=== PATIENT | female | born 1930 | race Caucasian/White ===

== ENCOUNTER 2016-07-23 09:58 | Observation (INO) | payer MEDICARE, OTHER, MEDICAID, SELFPAY ==
[~2016-07-23] VITALS: Ht 165.1 cm; Wt 69.2 kg
--- NOTE | ~2016-07-23 | CON ---
[facility] 86 Y [address] ROOM: [place] [address] LOCATION: GPCU ADMIT DATE: 07/23/2016 Consultation DISCHARGE DATE: FAMILY PHYSICIAN: BRIAN SHEFFIELD MD ATTENDING PHYSICIAN: SHERYL GREGORY DATE OF CONSULTATION: 07/23/2016 REFERRING PHYSICIAN: Rodney BARNETT CHIEF COMPLAINT: Medical management in the setting of right arm hematoma evacuation. HISTORY OF PRESENTING ILLNESS: This 86-year-old white female with previous history of end-stage renal disease, on hemodialysis; peripheral arterial disease; and coronary artery disease, was admitted to [facility] today by Dr. Gregory for planned evacuation of a right arm hematoma. She underwent the procedure without any complications. Venous blood was found without any obvious arterial source for bleeding. Postoperatively, she was transferred to the floor and has done well. Presently, she complains of a little bit of soreness in the right upper arm. She denies headaches and denies dizziness or nausea. No chest pain, shortness of breath, or abdominal pain. She does relate that she is worried that she "won't sleep" since she took a long nap this afternoon. PAST MEDICAL HISTORY: ALLERGIES: PENICILLIN, NIACIN, CODEINE, AND RANEXA. ILLNESSES: 1. End-stage renal disease, on hemodialysis 3 days a week. 2. Coronary artery disease, status post coronary artery bypass grafting and PCI with stenting. 3. Peripheral arterial disease with stenting of abdominal aortic aneurysm. 4. Essential hypertension. 5. Diabetes mellitus type 2. 6. Hyperlipidemia. 7. 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 8. Chronic oxygen dependence. 9. Hypothyroidism. 10. Anemia of chronic kidney disease. CURRENT MEDICATIONS: PATIENT'S NAME: JUAN PABLO [facility] AGE: 86 Y [address] ROOM: [place] [address] LOCATION: GPCU ADMIT DATE: 07/23/2016 Consultation DISCHARGE DATE: FAMILY PHYSICIAN: BRIAN SHEFFIELD MD ATTENDING PHYSICIAN: SHERYL GREGORY 1. Albuterol per neb q.4 hours p.r.n. 2. Amlodipine 5 mg p.o. daily. 3. Aspirin 81 mg p.o. daily. 4. Dulcolax 10 mg [place] daily p.r.n. 5. PhosLo 667 p.o. t.i.d. 6. Clonidine 0.1 mg p.o. b.i.d. 7. Plavix 75 mg p.o. daily. 8. Benadryl 25 mg p.o. q.h.s. 9. Colace 100 mg p.o. b.i.d. 10. Folate 1 mg p.o. daily. 11. Blanchard 1-2 tabs p.o. q.4 hours p.r.n. 12. Isosorbide mononitrate 30 mg p.o. 4 days a week and 60 mg p.o. 3 days a week. 13. Ensure liquid 4 ounces twice a day. 14. Levothyroxine 150 mcg p.o. q.h.s. 15. Lorazepam 0.25 mg p.o. 4 days a week and 0.5 mg p.o. q.8 hours p.r.n. 16. Milk of magnesia 30 mL p.o. daily p.r.n. 17. Reglan 5 mg p.o. b.i.d. 18. Metoprolol 100 mg p.o. 6 days a week. 19. Nitroglycerin p.r.n. 20. Omeprazole 40 mg p.o. daily. 21. Zofran 4 mg p.o. q.6 hours p.r.n. 22. Oxygen 3 L per nasal cannula continuously. 23. vitamin daily. 24. Seroquel 25 mg p.o. daily. 25. Rosuvastatin 40 mg p.o. daily. 26. Simethicone 80 mg p.o. q.4 hours p.r.n. FAMILY HISTORY: Significant for diabetes mellitus type 2 and coronary artery disease in her mother. SOCIAL HISTORY: She is and lives here in [place] at [facility]. She has good social support. She has a 40 [id number] history of smoking tobacco, has been quit for 3 years. There is no significant history of alcohol use. REVIEW OF SYSTEMS: As per HPI. All other organ systems are reviewed and are negative. OBJECTIVE: VITAL SIGNS: Temperature 98.3, pulse 86, respirations 14, blood pressure 148/67, and O2 saturation 95% on 3 L per nasal cannula. GENERAL: She is frail, not ill-appearing, lying in the bed, in no acute distress. PATIENT'S NAME: WARD ALMEIDA I [facility] AGE: 86 Y [address] ROOM: [id number] [place], [place] [address] LOCATION: GPCU ADMIT DATE: 07/23/2016 Consultation DISCHARGE DATE: FAMILY PHYSICIAN: BRIAN SHEFFIELD MD ATTENDING PHYSICIAN: SHERYL GREGORY SKIN: Supple, sallow, warm, and dry. No obvious rashes. The wound dressing overlying the right arm is clean and intact. There is a little bit of serosanguineous oozing from her dialysis catheter at the right chest, but no marcela bleeding. HEENT: Otherwise, normocephalic. Sclerae nonicteric. Pupils equal, round, and reactive to light and accommodation. Extraocular movements appear intact. Nasal turbinates normal. Oropharynx clear. Mucous membranes are pink and moist. NECK: Supple. No masses or adenopathy. No thyromegaly. No JVD. CHEST: Wall is symmetrical. HEART: Regular with occasional extrasystoles. There is a grade 2 to 3 out of 6 systolic ejection murmur. LUNGS: Diminished at the bases with long expiratory phase. No marcela wheezes. No areas of consolidation. ABDOMEN: Soft, nontender. Bowel sounds present. No mass. No hepatosplenomegaly. : Not done. RECTAL: Not done. EXTREMITIES: Display trace pitting edema. No cyanosis. NEUROLOGICAL: Mentation is little slowed, but there are no focal deficits. LABORATORY AND X-RAY DATA: CBC showed white blood cell count 11.1, hemoglobin is 9.7, hematocrit 31.3, and platelets 156. Chemistries revealed BUN and creatinine 35 and 5.0 respectively, sodium and potassium 139 and 4.3, chloride and CO2 are 104 and 26, calcium was 7.6, and glucose was 177. PT PTT 11.2 and 26 respectively with an INR of 1.1. Accu-Chek 113. ASSESSMENT/PLAN: 1. Diabetes mellitus type 2, historically well controlled. We will continue to manage with Accu-Cheks and sliding scale insulin while she is inpatient. We will make careful adjustments depending on her insulin needs. 2. Coronary artery disease, status post coronary artery bypass grafting. Clinically, stable and otherwise is asymptomatic. Continue with careful medical management including aspirin, Plavix, and beta-toshia therapy. Also, continue statin therapy. 3. End-stage renal disease, on hemodialysis. Plan to continue with hemodialysis per Nephrology. 4. Anemia of chronic kidney disease. There may be a component of acute blood loss. We will follow hemoglobin semi-serially. Plan to repeat CBC again in the morning. 5. Right arm hematoma, status post evacuation. She is on aspirin and Plavix. Plan to continue with those medications and monitor for blood loss as above. PATIENT'S NAME: WARD ALMEIDA I [facility] AGE: 86 Y [address] ROOM: [place] [address] [facility]: 07/[facility]2016 Consultation DISCHARGE DATE: FAMILY PHYSICIAN: BRIAN SHEFFIELD MD ATTENDING PHYSICIAN: SHERYL GREGORY 6. Essential hypertension, appears to be adequately controlled. We will monitor the trend and make adjustments if necessary. 7. Deep venous thrombosis prophylaxis. Utilize pneumatic compression devices and mobilize as she is physically able. MD FABIÁN RAMON/modl /[id number] d: 07/24/16223 t: 07/24/16 2154, CONSULTATION REPORT
--- NOTE | ~2016-07-23 | OR ---
PATIENT'S NAME: WARD ALMEIDA I [facility] AGE: 86 Y [address] ROOM: [facility] [place], [place] [address] LOCATION: GPCU ADMIT DATE: 07/23/2016 OR/Procedure Report DISCHARGE DATE: FAMILY PHYSICIAN: BIRAN SHEFFIELD MD ATTENDING PHYSICIAN: DAVID GREGORY SURGEON: David Gregory MD LEGISLATIVE ASSISTANT: DATE OF PROCEDURE: 07/23/2016 PREOPERATIVE DIAGNOSIS: End-stage renal disease. POSTOPERATIVE DIAGNOSIS: End-stage renal disease. PROCEDURE: Right arm brachiobasilic AV fistula superficialization. SEMICONDUCTOR PROCESSING GROUP LEADER: CAROLANN Ayala. ANESTHESIA: General. ESTIMATED BLOOD LOSS: 5 mL. Then, the patient was brought to the operating room for evacuation of hematoma from the recovery room immediately. COMPLICATION: Hematoma. No distinct source identified at re-operation. DESCRIPTION OF PROCEDURE: The patient was brought to the operating room, placed supine on the operative table. Prepped and draped in a sterile manner after being placed under general anesthesia. The patient received preoperative antibiotics. A time-out was performed. We made an incision along the path of the basilic vein fistula which was already matured, dissected in a 360-degree fashion, ligated and clipped all branches. We brought it to the surface. Using interrupted Vicryl sutures in the subcuticular tissue and then closed the skin with interrupted 4-0 nylon. The arm was dressed and taken to the recovery room. After about 10 minutes being in the recovery room, the patient had a sudden shot of pain in her arm and her arm began to swell and bleed. We took her back to the operating room immediately. She was once again prepped and draped in a sterile manner. We reopened the wound. There was a large evacuation of the hematoma with a total blood loss of about a liter. We copiously irrigated the wound. With even surgical lavage and pulse irrigation, we could not find a distinct arterial bleed. The fistula was intact. There was a strong thrill and bruit in the fistula. We suture ligated some small venous ends, but this could not really explain where this arterial blood was from. This patient is end-stage renal and hyper-uremic as well as being on aspirin and Plavix, this could have just been from generalized ooze. After irrigating the wound further, we packed it with Surgicel, reapproximated the deep layers with Vicryl and then closed the PATIENT'S NAME: WARD ALMEIDA I [facility] AGE: 86 Y [address] ROOM: [place] [address] [facility] AD[facility] DATE: 07/23/2016 OR/Procedure Report DISCHARGE DATE: FAMILY PHYSICIAN: BRIAN SHEFFIELD MD ATTENDING PHYSICIAN: DAVID GREGORY skin once again with 4-0 Monocryl. The patient will be admitted to the hospital for observation overnight. MD ALYSON SHERIDAN/mercy /[id number] d: 07/24/16 0036 t: 07/27/16 0945, OPERATIVE SUMMARY
--- NOTE | ~2016-07-23 | CON ---
PATIENT'S NAME: WARD ALMEIDA I [facility] AGE: 86 Y [address] ROOM: [place] [address] LOCATION: GPCU ADMIT DATE: 07/24/2016 Consultation DISCHARGE DATE: FAMILY PHYSICIAN: BRIAN SHEFFIELD MD ATTENDING PHYSICIAN: SHERYL GREGORY DATE OF CONSULTATION: 07/24/2016 REFERRING PHYSICIAN: Rodney BARNETT This is [facility] Nephrology consultation. REASON FOR CONSULTATION: End-stage renal disease, need for hemodialysis. HISTORY OF PRESENT ILLNESS: This is an 86-year-old female patient, who is well known to Nephrology, who presents to Dr. Gregory for a right arm brachiobasilic AV fistula superficialization with evacuation of hematoma following. The patient does currently have hemodialysis on Friday, Friday, Friday at [facility] in [place]. She does tolerate this quite well. The patient does attend her hemodialysis appointments as scheduled. She is compliant with her medications and is currently living in [facility]. The patient does have a longstanding history of significant coronary artery disease and diastolic cardiac dysfunction with congestive heart failure. The patient has been started on hemodialysis for history of cardiorenal syndrome with fluid overload. The patient has had multiple percutaneous coronary interventions with stent placement at least 5 times. She, however, has not undergone coronary artery bypass grafting surgery. The patient usually follows with Dr. Kim at [facility]. The patient presented for a right arm brachiobasilic AV fistula, stage I procedure with Dr. Gregory. The patient is due for hemodialysis today and does continue to have some oozing from the site postprocedure. Dr. Gregory would like to keep the patient in, and therefore, Dr. Kim has been consulted to manage the patient's inpatient dialysis. PAST MEDICAL HISTORY: As listed above includin. End-stage renal disease, on hemodialysis therapy. 2. Coronary artery disease. 3. Hypertension. 4. Mixed hyperlipidemia. PATIENT'S NAME: WARD ALMEIDA I [facility] AGE: 86 Y [address] ROOM: [place] [address] LOCATION: GPCU ADMIT DATE: 07/24/2016 Consultation DISCHARGE DATE: FAMILY PHYSICIAN: BRIAN SHEFFIELD MD ATTENDING PHYSICIAN: SHERYL GREGORY 5. Type 2 diabetes mellitus. 6. Colonic diverticular disease, post sigmoid colectomy in 2004. 7. Chronic obstructive pulmonary disease, oxygen dependent. 8. Abdominal aortic aneurysm, post stent graft repair on 07/13/2012. 9. Carotid occlusive disease, post left carotid endarterectomy in 2012. 10. Gouty arthritis. 11. Primary hypothyroidism. 12. Anemia of chronic disease. PAST SURGICAL HISTORY: As listed above includin. Appendectomy. 2. PTCA with multiple stenting and PCI. 3. Left carotid endarterectomy in 2012. 4. Endovascular abdominal aortic stent graft repair in June of 2012. 5. Left iliac pseudoaneurysm repair in 2013. 6. Cholecystectomy in 1969. 7. Hysterectomy in the . ALLERGIES: PENICILLIN, WHICH CAUSES ANGIOEDEMA AND HIVES; AND NIACIN CAUSING HIVES; AND CODEINE CAUSING HIVES AND HER FACE SWELLING. FAMILY HISTORY: Reviewed and is noncontributory. There is no history of d-stage renal disease or dialysis. There is a strong family history of type 2 diabetes mellitus and coronary artery disease. There is also a strong family history of peripheral vascular disease. SOCIAL HISTORY: The patient is a former smoker of approximately 1 to 2 packs per day for over 40 years. She did quit in July 2013. She denies any illicit drug use or alcohol use currently. The patient is also and does live at [facility] currently. She does have strong family support. CURRENT HOME MEDICATIONS: 1. Aspirin 81 mg daily. 2. Ativan 0.25 mg on Friday, Friday, , Friday. 3. Catapres 0.1 mg p.o. b.i.d. 4. Colace 100 mg p.o. b.i.d. 5. Crestor 40 mg daily at bedtime. 6. Clindamycin 600 mg IV q.8 hours. 7. Folic acid 1 mg p.o. daily. 8. Imdur 30 mg p.o. Friday, Friday, , Friday, and 60 mg Friday, Friday, and Friday. PATIENT'S NAME: WARD ALMEIDA I [facility] AGE: 86 Y [address] ROOM: [address] [place] [address] LOCATION: GPCU ADMIT DATE: 07/24/2016 Consultation DISCHARGE DATE: FAMILY PHYSICIAN: BRIAN SHEFFIELD MD ATTENDING PHYSICIAN: SHERYL GREGORY 9. Levothyroxine 150 mcg daily at bedtime. 10. Lopressor 100 mg Friday, Friday, Friday, , Friday, Friday twice a day. 11. Norvasc 5 mg daily. 12. NovoLog sliding scale. 13. PhosLo 667 mg p.o. t.i.d. 14. Plavix 75 mg daily. 15. one tablet daily. 16. Protonix 40 mg daily. 17. Reglan 5 mg twice a day. 18. Seroquel 25 mg p.o. daily. REVIEW OF SYSTEMS: GENERAL: Denies any fever, chills, or night sweats. EYES: No double vision or blurred vision. Her visual acuity is less than ideal. EARS: Decreased auditory acuity noted. NOSE: No epistaxis or rhinorrhea. THROAT: No sore throat, hoarseness, or cough. RESPIRATORY: Denies wheezing or hemoptysis. CARDIOVASCULAR: Denies any chest pain currently or palpitations. Significant history of coronary artery disease. See HPI. GASTROINTESTINAL: Denies any nausea, vomiting, or diarrhea. Does report a lack of appetite currently. GENITOURINARY: Denies any frequency, urgency, or hesitancy. She does continue to make a small amount of urine despite hemodialysis. MUSCULOSKELETAL: She does have some generalized arthralgias. No new arthralgias or myalgias. She does report some pain in the right upper extremity secondary to procedure. PSYCHIATRIC: She does have some anxiety. Denies a history of depression. LABORATORY DATA: WBCs 9.3, hemoglobin 8.5, hematocrit 26.8, platelets 152. Glucose 175, BUN 42, creatinine 5.5, sodium 140, potassium 4.7, chloride 106, CO2 of 23, calcium 7.2, albumin 2.7. INR 1.1. PHYSICAL EXAMINATION: VITAL SIGNS: Blood pressure is 126/58, pulse is 66, respirations 13, temp is 97.6, and saturations are 92% on 2 L nasal cannula. GENERAL: On exam, this is an alert and oriented white elderly female, who appears her approximated stated age, is in no acute distress. HEENT. Her head is normocephalic and atraumatic. Eyes: Pupils are equal, round, react to light and accommodation. EOMs are intact. Corrective lenses are worn. Nose is midline. Mouth, no gingival bleeding. Dentition is in poor repair. Mucous membranes are pink and moist. PATIENT'S NAME: WARD ALMEIDA I [facility] AGE: 86 Y [address] ROOM: [place] [address] LOCATION: GPCU ADMIT DATE: 07/24/2016 Consultation DISCHARGE DATE: FAMILY PHYSICIAN: BRIAN SHEFFIELD MD ATTENDING PHYSICIAN: SHERYL GREGORY NECK: Without lymphadenopathy or JVD. No bruits noted. CARDIOVASCULAR: Regular rate and rhythm with a grade 2 to 3 over 6 systolic ejection murmur heard best at the second intercostal space, radiation to the carotids. LUNGS: Lung sounds are clear to auscultation anteriorly and posteriorly. Breaths are nonlabored. The patient is on 2 L nasal cannula. ABDOMEN: Soft, nontender, and nondistended. Bowel sounds positive. EXTREMITIES: Show trace lower extremity edema bilaterally. GENITOURINARY: Deferred. RECTAL: Deferred. NEUROLOGIC: Cranial nerves 2 through 12 are grossly intact. The patient is alert and oriented x3 at the time of exam. ASSESSMENT AND PLAN: 1. End-stage renal disease, requiring hemodialysis therapy. We will obtain the patient's outpatient clinical record and provide hemodialysis accordingly. The patient is due for hemodialysis today. We will follow with her current plan of care. 2. Right arm hematoma, status post evacuation. The patient is on aspirin and Plavix as an outpatient. The patient is continuing to ooze from the site. Dr. Gregory is following. 3. Anemia of chronic kidney disease. The patient's hemoglobin is currently stable. We will continue to follow closely, and the patient will receive Mircera as an outpatient for her history of chronic disease. 4. Coronary artery disease. This is currently stable. The patient is not experiencing any exertional chest discomfort. We will follow closely due to her significant history and involve Cardiology as warranted. This patient has been seen and assessed by Dr. Kim. Her care is being conducted in consultation with Dr. Kim as well as me. We will plan further recommendations as they are forthcoming. SCOTT MORROW DNP, MD ADAN STONER/mercy /[id number] d: 07/24/162 t: 08/07/16 1557, CONSULTATION REPORT
[~2016-07-23 09:58] MED LIST: ALBUTEROL0.63 MG/3 INH; ASPIR 8181 MG PO; ATIVAN 0.5MG0.5 MG PO; BENADRYL25 MG PO; BRILINTA90 MG PO; CATAPRES0.1 MG PO; CEFTIN500 MG PO; COLACE100 MG PO; COZAAR50 MG PO; CRESTOR20 MG PO; CRESTOR40 MG PO; DULCOLAX10 MG R; ENSURE ORIGINA237 M1 PO; FOLIC ACID1 MG PO; GENTAMICIN15 GM TOP; IMDUR30 MG PO; IMDUR60 MG PO; LEVOTHROID (S137 MCG PO; LEVOTHROID (S150 MCG PO; LOPRESSOR100 MG PO; METOCLOPRAMIDE H5 MG PO; MILK OF MA400 MG/5 M PO; MYLICON OR GAS-80 MG PO; NITROSTAT 0.40.4 MG SL; NORCO 5-325 MG1 TAB PO; NORCO 5-325 TA1 EACH PO; NORVASC5 MG PO; OXYGEN M-15 INH; PAIN & FEVER325 MG PO; PHOSLO667 MG PO; PLAVIX75 MG PO; PREFERA OB TAB1 EACH PO; PRILOSEC40 MG PO; SEROQUEL25 MG PO; TYLENOL325 MG PO; ZOFRAN4 MG PO
[2016-07-23 11:02] LABS: BASOPHIL % 0.3 %; EOSINOPHIL # 0.2 K/uL (0.0-0.5); EOSINOPHIL % 2.2 %; HEMATOCRIT 37.4 % (30.0-46.0); HEMOGLOBIN 11.8 g/dL (10.0-15.0); IMMATURE GRANULOCYTE % 0.6 %; LYMPHOCYTE % 13.3 %; MCH 36.6 pg (27.0-34.0); MCHC 31.6 gm/dL (32.0-36.5); MCV 116.1 fl (83.0-98.0); MONOCYTE # 0.9 K/uL (0.0-1.0); MPV 9.9 fl (9.4-12.4); NEUTROPHIL # (ANC) 5.2 K/uL (1.8-7.8); NEUTROPHIL % 71.6 %; NRBC % 0 /100WBC (0-0.00); PLATELET COUNT 184 K/uL (150-450); RBC 3.22 M/uL (3.00-5.00); RDW-CV 14.6 % (11.9-14.6); WBC 7.2 K/uL (4.0-11.0)
[2016-07-23 11:18] LABS: ANION GAP 13.4 (10.0-19.0); CALCIUM 8.6 mg/dL (8.5-10.5); POTASSIUM 4.4 mMol/L (3.7-5.1); TOTAL PROTEIN 7.8 g/dL (6.0-8.4)
[2016-07-23 11:19] LABS: CREATININE 4.7 mg/dL (0.5-1.1); TOTAL BILIRUBIN 0.4 mg/dL (0.0-1.5)
[2016-07-23 11:33] LABS: INR - (THERAPEUTIC) 1.1 (0.9-1.1); PROTIME 11.2 SECONDS (9.6-11.1); PTT 26 SECONDS (25-32)
[2016-07-23 19:31] LABS: BASOPHIL % 0.1 %; EOSINOPHIL % 0.2 %; HEMATOCRIT 31.3 % (30.0-46.0); HEMOGLOBIN 9.7 g/dL (10.0-15.0); IMMATURE GRANULOCYTE # 0.1 K/uL (0.0-0.3); IMMATURE GRANULOCYTE % 0.4 %; LYMPHOCYTE # 0.6 K/uL (0.8-4.0); LYMPHOCYTE % 5.3 %; MCH 34.8 pg (27.0-34.0); MCV 112.2 fl (83.0-98.0); MONOCYTE # 1.1 K/uL (0.0-1.0); MONOCYTE % 10.2 %; MPV 9.8 fl (9.4-12.4); NEUTROPHIL # (ANC) 9.3 K/uL (1.8-7.8); NEUTROPHIL % 83.8 %; NRBC % 0 /100WBC (0-0.00); PLATELET COUNT 156 K/uL (150-450); RBC 2.79 M/uL (3.00-5.00); WBC 11.1 K/uL (4.0-11.0)
[2016-07-23 19:33] LABS: RDW-CV 19.9 % (11.9-14.6)
[2016-07-23 19:44] LABS: ANION GAP 13.3 (10.0-19.0); CALCIUM 7.6 mg/dL (8.5-10.5); POTASSIUM 4.3 mMol/L (3.7-5.1)
[2016-07-24 03:42] LABS: BASOPHIL % 0.4 %; EOSINOPHIL % 0.2 %; HEMATOCRIT 26.8 % (30.0-46.0); HEMOGLOBIN 8.5 g/dL (10.0-15.0); IMMATURE GRANULOCYTE # 0.1 K/uL (0.0-0.3); IMMATURE GRANULOCYTE % 1.1 %; LYMPHOCYTE # 1.2 K/uL (0.8-4.0); LYMPHOCYTE % 13.4 %; MCH 35.3 pg (27.0-34.0); MCHC 31.7 gm/dL (32.0-36.5); MCV 111.2 fl (83.0-98.0); MONOCYTE # 0.9 K/uL (0.0-1.0); MONOCYTE % 9.7 %; MPV 9.9 fl (9.4-12.4); NEUTROPHIL % 75.2 %; NRBC % 0 /100WBC (0-0.00); PLATELET COUNT 152 K/uL (150-450); RBC 2.41 M/uL (3.00-5.00); RDW-CV 19.9 % (11.9-14.6); WBC 9.3 K/uL (4.0-11.0)
[2016-07-24 04:11] LABS: ALBUMIN 2.7 gm/dL (3.5-5.0); ANION GAP 15.7 (10.0-19.0); MAGNESIUM 2.2 mg/dL (1.3-2.6); PHOSPHORUS 4.6 mg/dL (2.5-4.9); POTASSIUM 4.7 mMol/L (3.7-5.1)
[2016-07-24 04:13] LABS: CALCIUM 7.2 mg/dL (8.5-10.5); CREATININE 5.5 mg/dL (0.5-1.1)
--- NOTE | 2016-07-24 05:22 | NUR ---
A&O. Arrived to floor from recovery at 1850. VSS. Basilic vein ligation- was to go home, but developed a large hematoma that had to be evacuated. 1000ml EBL. Dressing to right upper arm. Drainage to dressing upon arrival to floor, but it has not increased. 3 ltrs O2 via NC- which is patient's baseline at home. Dialysis M-W-. IV in left leg SL. IV left wrist SL. ACHS. No BPs in left arm d/t old fistula. VSS.
--- NOTE | 2016-07-24 17:06 | NUR ---
Significant Event: A/O x3, forgetful at times et will make off the wall statements; family states that is baseline. VSS, SBPs 100-120s, HRs 60-70s, oxygen at 3 liters as per home. 2 tabs of [place] given x2, last at 1538, for c/o R) arm pain. Dr. Gregory removed dressing from R) arm; couple of places continue to ooze. Surgi seal applied to 2 areas et incision covered with gauze et tegaderm. Incision oozed a significant amount to saturate 2/3 of dressing when patient getting into w/c for dialysis. Dr. Gregory notified et dressing changed. Surgi seal replaced to one area close to elbow et incision covered with gauze, tegaderm et wrapped in kerlix. To [facility] where patient remains at this time. Follow up: possible d/c tomorrow to [facility]
[2016-07-24 18:46] LABS: HEMATOCRIT 26.7 % (30.0-46.0); HEMOGLOBIN 8.6 g/dL (10.0-15.0)
--- NOTE | 2016-07-25 04:39 | NUR ---
Significant Event:ALERT &ORIENTED. FORGET. 3L NC OXYGEN, SATS >90% R UA DRESSING WITH MOIST DRAINAGE/SHADOW,INTACT AND ECCHYMOTIC. NORCO X1. Follow up:POSSIBLE DISMISSAL 07/25
[2016-07-25 06:23] LABS: BASOPHIL % 0.4 %; EOSINOPHIL # 0.4 K/uL (0.0-0.5); EOSINOPHIL % 4.8 %; HEMATOCRIT 25.9 % (30.0-46.0); HEMOGLOBIN 8.2 g/dL (10.0-15.0); IMMATURE GRANULOCYTE # 0.1 K/uL (0.0-0.3); IMMATURE GRANULOCYTE % 1.5 %; LYMPHOCYTE # 1.1 K/uL (0.8-4.0); LYMPHOCYTE % 13.3 %; MCH 35.2 pg (27.0-34.0); MCHC 31.7 gm/dL (32.0-36.5); MCV 111.2 fl (83.0-98.0); MONOCYTE % 12.2 %; MPV 10.2 fl (9.4-12.4); NEUTROPHIL # (ANC) 5.6 K/uL (1.8-7.8); NEUTROPHIL % 67.8 %; NRBC % 0 /100WBC (0-0.00); PLATELET COUNT 149 K/uL (150-450); RBC 2.33 M/uL (3.00-5.00); RDW-CV 18.3 % (11.9-14.6); WBC 8.2 K/uL (4.0-11.0)
--- NOTE | 2016-07-25 16:02 | NUR ---
Received call at 0900 from Johanne CALHOUN at [facility] stating that they can only pick patient up for transport at 1330 or 1430 today. If she would need dialysis today it would need to be done before they pick her up. I called and relayed the information to Ignacia VALENTINE. I spoke with Johanne again at 1230 and updated her that patient had been seen and cleared for discharge by Dr Dominguez but were waiting for Dr Serrano and Dr Gregory to round. I called and spoke with Ignacia VALENTINE again. She stated she would try to call both doctors again. Ignacia called at [address] Serrano was okay with discharge back to [facility]. At [address] Gregory's phone and got an OR nurse. I asked if she would ask Dr Gregory if had to see Nicolasa before she was discharge. He did. He stated he would be up to see her as soon as he was done in surgery. 1435 I called and asked Johanne CALHOUN at [facility] what the latest time they would still accept Nicolasa today would be. She asked her D.O.N and stated not today will need to pick her up tomorrow. I did inform her that they would need to pick her up early enough to get her to her regular outpatient dialysis chair time at [facility]. She states her chair time is 10am. [facility] will be her to transport patient at 0900. I updated Ignacia who updated Dr Dominguez. Orders were faxed.
--- NOTE | 2016-07-25 17:16 | NUR ---
Significant Event: A/O x3 but is forgetful at times et will make off the wall statements; cooperative with cares. VSS, SBPs 100-150s, HRs 60-70s, oxygen at 3 liters. 1 tab of norco given x2 for c/o R) arm pain; relief noted. Dr. Gregory up this afternoon; dressing to R) arm changed; gauze et gauze wrap in place. Up to chair with assist of 1. Follow up: needs to be ready to leave by 0900 in the AM; orders are done, packet started. Dr. Dominguez aware et will be over around 0830. Dr. Gregory doesn't need to see patient prior to leaving
--- NOTE | 2016-07-26 04:42 | NUR ---
pt a/o x3ish. vss on 3l, afebrile. had 12 beats of vtach-asymptomatic- smolik ordered am labs. Stearns given at hs, and at MN. incision site no changes. Plan: DC today back to [facility], HD at 10.
[2016-07-26 06:01] LABS: BASOPHIL % 0.1 %; EOSINOPHIL # 0.5 K/uL (0.0-0.5); EOSINOPHIL % 5.5 %; HEMATOCRIT 26.8 % (30.0-46.0); HEMOGLOBIN 8.4 g/dL (10.0-15.0); IMMATURE GRANULOCYTE # 0.1 K/uL (0.0-0.3); IMMATURE GRANULOCYTE % 0.6 %; LYMPHOCYTE # 1.3 K/uL (0.8-4.0); LYMPHOCYTE % 15.4 %; MCH 34.9 pg (27.0-34.0); MCHC 31.3 gm/dL (32.0-36.5); MCV 111.2 fl (83.0-98.0); MONOCYTE % 11.7 %; MPV 10.2 fl (9.4-12.4); NEUTROPHIL # (ANC) 5.6 K/uL (1.8-7.8); NEUTROPHIL % 66.7 %; NRBC % 0 /100WBC (0-0.00); PLATELET COUNT 158 K/uL (150-450); RBC 2.41 M/uL (3.00-5.00); RDW-CV 16.9 % (11.9-14.6); WBC 8.4 K/uL (4.0-11.0)
[2016-07-26 06:23] LABS: ANION GAP 14.9 (10.0-19.0); CALCIUM 8.1 mg/dL (8.5-10.5); MAGNESIUM 2.2 mg/dL (1.3-2.6); POTASSIUM 4.9 mMol/L (3.7-5.1)
[2016-07-26 06:27] LABS: CREATININE 5.1 mg/dL (0.5-1.1)
--- NOTE | 2016-07-26 09:46 | NUR ---
Significant Event: A/O x3, forgetful at times; cooperative with cares. VSS, SBP 134, HR 66, oxygen remains at 3 liters. No c/o pain. Dressing to R) arm changed prior to d/c because of oozing; small amount of oozing noted from area towards bottom of the incision in the elbow region. Up with assist of 1 to chair et w/c. Transfer packet given to advanced clinical specialist. Dismissed to front lobby per w/c accompanied by advanced clinical specialist Follow up:
== END 2016-07-26 09:25 | disposition disaster alternative care site (69) ==
LOC: GPCU 09:58 → GSDC 09:58 → GPCU 18:30 → GSDC 18:31 → GPCU 07-24 12:30
PROVIDERS: Family Medicine; Internal Medicine; ADMIT Surgery Vascular Surgery
PROC: 03WY03Z Revision of Infusion Device in Upper Artery, Open Approach (ICD-10-PCS; principal; 2016-07-23)
DX: E11.22 Type 2 diabetes mellitus with diabetic chronic kidney disease (principal); I12.0 Hypertensive chronic kidney disease with stage 5 chronic kidney disease or end stage renal disease; N18.6 End stage renal disease; E78.5 Hyperlipidemia, unspecified; I73.9 Peripheral vascular disease, unspecified; I25.810 Atherosclerosis of coronary artery bypass graft(s) without angina pectoris; I25.2 Old myocardial infarction; E03.9 Hypothyroidism, unspecified; J96.11 Chronic respiratory failure with hypoxia; D62 Acute posthemorrhagic anemia; E66.9 Obesity, unspecified; Z87.891 Personal history of nicotine dependence; Z99.2 Dependence on renal dialysis; Z88.0 Allergy status to penicillin; Z90.49 Acquired absence of other specified parts of digestive tract; Z90.710 Acquired absence of both cervix and uterus; Z98.41 Cataract extraction status, right eye; Z98.42 Cataract extraction status, left eye; Z79.82 Long term (current) use of aspirin; Z79.899 Other long term (current) drug therapy
CPT/HCPCS: A9270; G0378; J1644; J2001; J2405; J2720; J3010; J7030; J7050; P9016; P9047

== ENCOUNTER 2016-07-30 11:05 | Emergency (ER) | payer MEDICARE, OTHER, MEDICAID ==
--- NOTE | ~2016-07-30 | ER ---
PATIENT'S NAME: WARD ALMEIDA I [facility] AGE: 86 Y [address] ROOM: [place] [id number] LOCATION: [facility] ADMIT DATE: 07/30/2016 ER/Outpatient Report DISCHARGE DATE: 07/30/2016 FAMILY PHYSICIAN: eDrrell Yin MD ATTENDING PHYSICIAN: Anam Eisenberg CHIEF COMPLAINT: Fall. HISTORY OF PRESENT ILLNESS: The patient was at her residence this morning when she tried to use the restroom without assistance. She lost her balance, fell on her bottom, and then leaned backwards striking her head. She denies loss of consciousness. She has no particular complaints at this time. The facility did note that her right upper extremity fistula location has had some bleeding recently. They are concerned that she may have dropped her hemoglobin from that. They deny any infectious signs or symptoms. No other acute findings. She came in by transport per facility. PAST MEDICAL HISTORY: Most notable for chronic renal failure. She also has a history of diabetes, COPD, heart disease, hypertension, high cholesterol, and GERD. She does currently dialyze. MEDICATIONS: Documented on the record. ALLERGIES: DOCUMENTED ON THE RECORD. REVIEW OF SYSTEMS: All systems were reviewed and negative except as noted in the HPI. PHYSICAL EXAMINATION: VITAL SIGNS: Blood pressure is 136/74, pulse 64, respiratory rate is 20, temperature 97.1, SpO2 is 97% on room air. GENERAL: An age-appropriate female, in no obvious pain or distress, recumbent on the exam table. No obvious abnormalities. NEUROLOGIC: Awake and alert. GCS is 15. The patient is very witty and sharp. No focal deficits. No asymmetry on exam. No weakness or dysarthria appreciated. HEENT: Normocephalic, atraumatic. No abnormalities per inspection. Eyes are PERRL. Oropharynx is clear. NECK: Supple. Trachea is midline. CHEST: Heart is regular rate and rhythm with no murmurs. In chest wall, PATIENT'S NAME: WARD ALMEIDA I [facility] AGE: 86 Y [address] ROOM: [place] [address] LOCATION: [facility] ADMIT DATE: 07/30/2016 ER/Outpatient Report DISCHARGE DATE: 07/30/2016 FAMILY PHYSICIAN: Derrell Yin MD ATTENDING PHYSICIAN: Anam Eisenberg tunneled catheter, no evidence of infection. LUNGS: Clear to auscultation bilateral grossly. No rhonchi, wheezes, or rales. BACK: Nontender to palpation throughout. No CVA tenderness. ABDOMEN: Soft, nontender, and nondistended. No rebound, guarding, or masses. EXTREMITIES: Right upper extremity fistula creation site is intact, and there is some swelling and bruising around the arm. No evidence of active bleeding or deep space hematoma or infection. SKIN: Warm, dry, and intact except as noted above. LABORATORY DATA AND X-RAYS: Head CT was obtained with no acute findings per Radiology. CMS is notable for glucose 168, creatinine 4.6, GFR is 9. Alkaline phosphatase of 163 with no other pertinent abnormalities. Magnesium 2.6. Troponin below threshold, CPK is 23. CBC: WBC 7.1; hemoglobin is 9.0, up from the mid 8s; platelets of 225. INR is 1.05. EKG reveals sinus rhythm, rate of 60 with otherwise normal intervals and axis. Otherwise, normal EKG. IMPRESSION: 1. Mechanical fall. 2. Well-healing right upper extremity fistula site. EMERGENCY DEPARTMENT COURSE: The patient was seen and evaluated. She appears to have no significant abnormalities contributing to her fall. Her hemoglobin has actually increased and vital signs appear well. Head CT is negative for bleed. No dysrhythmia on EKG. She is mentating crystal clear. Dr. Gregory, vascular surgeon, did evaluate her arm and fistula creation site. No significant abnormalities per his concern. Otherwise, the patient was doing well and was ultimately discharged in good condition back to the [facility]. MD ERLINDA TAPIA/hazell /[id number] d: 07/30/16 224 t: 08/05/16 0648, OUTPATIENT REPORT
[2016-07-30 11:41] LABS: BASOPHIL % 0.6 %; EOSINOPHIL # 0.4 K/uL (0.0-0.5); HEMATOCRIT 29.7 % (30.0-46.0); IMMATURE GRANULOCYTE # 0.1 K/uL (0.0-0.3); LYMPHOCYTE # 0.9 K/uL (0.8-4.0); LYMPHOCYTE % 12.5 %; MCHC 30.3 gm/dL (32.0-36.5); MCV 115.6 fl (83.0-98.0); MONOCYTE # 0.7 K/uL (0.0-1.0); MONOCYTE % 10.3 %; MPV 9.6 fl (9.4-12.4); NEUTROPHIL % 70.6 %; NRBC % 0 /100WBC (0-0.00); RBC 2.57 M/uL (3.00-5.00); RDW-CV 16.1 % (11.9-14.6); WBC 7.1 K/uL (4.0-11.0)
[2016-07-30 11:42] LABS: PLATELET COUNT 225 K/uL (150-450)
[2016-07-30 11:49] LABS: INR - (THERAPEUTIC) 1.05 (0.92-1.07); PTT 27 SECONDS (25-32)
[2016-07-30 12:00] LABS: ALK PHOS 163 IU/L (33-138); ALT 20 IU/L (12-78); ANION GAP 11.2 (10.0-19.0); AST 18 IU/L (10-40); BLOOD UREA NITROGEN 24 mg/dL (6-24); CALCIUM 8.6 mg/dL (8.5-10.5); CHLORIDE 101 mMol/L (96-110); CO2 31 mMol/L (22-32); CPK 23 IU/L (21-215); CREATININE 4.6 mg/dL (0.5-1.1); ESTIMATED GFR (MDRD EQUATION) 9; MAGNESIUM 2.6 mg/dL (1.3-2.6); POTASSIUM 4.2 mMol/L (3.7-5.1); SODIUM 139 mMol/L (135-145); TOTAL BILIRUBIN 0.4 mg/dL (0.0-1.5)
== END 2016-07-30 13:29 | disposition disaster alternative care site (69) ==
LOC: GACC 11:05
PROVIDERS: Emergency Medicine
DX: Z04.3 Encounter for examination and observation following other accident (principal); I12.0 Hypertensive chronic kidney disease with stage 5 chronic kidney disease or end stage renal disease; E11.22 Type 2 diabetes mellitus with diabetic chronic kidney disease; N18.6 End stage renal disease; E78.00 Pure hypercholesterolemia, unspecified; K21.9 Gastro-esophageal reflux disease without esophagitis; Z88.0 Allergy status to penicillin; Z88.5 Allergy status to narcotic agent; Z88.8 Allergy status to other drugs, medicaments and biological substances; W20.8XXA Other cause of strike by thrown, projected or falling object, initial encounter

== ENCOUNTER → 2016-11-05 | Outpatient (CLI) | payer MEDICARE, OTHER, MEDICAID | END | disposition disaster alternative care site (69) | LOC: GRAD 11:15 | PROC: 05PY33Z Removal of Infusion Device from Upper Vein, Percutaneous Approach (ICD-10-PCS; principal; 2016-11-05) | DX: Z45.2 Encounter for adjustment and management of vascular access device (principal) ==

== ENCOUNTER → 2016-11-22 | Outpatient (CLI) | payer MEDICARE, OTHER, MEDICAID | END | disposition disaster alternative care site (69) | LOC: GAMB 11:49 | DX: R07.9 Chest pain, unspecified (principal); I95.9 Hypotension, unspecified; N18.3 Chronic kidney disease, stage 3 (moderate); Z79.01 Long term (current) use of anticoagulants; Z79.891 Long term (current) use of opiate analgesic; Z79.899 Other long term (current) drug therapy; Z88.0 Allergy status to penicillin; Z88.2 Allergy status to sulfonamides; Z88.5 Allergy status to narcotic agent; Z88.8 Allergy status to other drugs, medicaments and biological substances | CPT/HCPCS: A0422; A0425; A0427 ==